=== PATIENT | female | born 1935 | race Caucasian/White ===

== ENCOUNTER 2023-08-31 20:00 | Emergency (ER) | payer OTHER, SELFPAY ==
[2023-08-31 20:02] VITALS: BP 202/98; PULSE 61; RESP 15; TEMP 36.3; O2SAT 98; BMI 19.6
--- NOTE | 2023-08-31 20:22 | EKG12_ITS ---
Test Reason : DYSRHYTHMIA Blood Pressure : / mmHG Vent. Rate : 070 BPM Atrial Rate : 070 BPM P-R Int : 152 ms QRS Dur : 088 ms QT Int : 422 ms P-R-T Axes : 073 054 074 degrees QTc Int : 455 ms Normal sinus rhythm Minimal voltage criteria for LVH, may be normal variant ( Sokolow-Kirk ) Borderline ECG Confirmed by Demarcus Dhillon ([id number]), sound editor DINA MENEZES ([id number]) on 09/01/2023 8:06:46 AM Referred By: Confirmed By:Demarcus Dhillon
[2023-08-31] MEDS: 0.9% Normal Saline (1000mL) 1,000 ML 1000 ML IV (20:45)
[2023-08-31 20:46] VITALS: BP 231/84; PULSE 61; RESP 15; O2SAT 98
[2023-08-31 20:51] LABS: Absolute Lymphocyte Count 1.41 X10^3/uL (0.83-4.51); Absolute Neutrophil Count 4.5 X10^3/uL (2.0-7.7); Basophil# 0.03 X10^3/uL; Basophil% 0.5 % (0-1); Eosinophil# 0.09 X10^3/uL; Eosinophils% 1.4 % (0-5); Hematocrit 45.1 % (37-47); Hemoglobin 14.5 g/dL (12.0-15.0); Lymphocyte # 1.41 X10^3/ul (0.83-4.51); Lymphocyte % 21.3 % (19-41); Mean Corp Hgb Conc 32.2 g/dL (32-36); Mean Corpuscular Hgb 28.8 pg (27.0-32.0); Mean Corpuscular Volume 89.7 fL (81-99); Mean Platelet Vol. 9.1 fl (6.2-12.0); Monocyte% 9.1 % (0-10); NRBC Flagged by Analyzer 0 % (0-5); Neutrophil # 4.46 X10^3/uL (2.7-7.7); Neutrophil % 67.2 % (47-70); Platelet Count 237 K/mm3 (150-450); RBC Distribution Width SD 42.8 fl (35.1-43.9); Red Blood Count 5.03 M/mm3 (4.2-5.4); White Blood Count 6.6 K/mm3 (4.4-11.0)
[2023-08-31 21:04] LABS: Bacteria 0 SEEN /hpf (None Seen); Color, Urine Yellow (Yellow); Glucose, Dipstick Normal (Normal); Ketone-Dipstick Negative (Negative); Leukocyte Esterase-Dipstick 500 /ul (Negative); Mucous, Urine 0 SEEN /hpf (<or=2+); Nitrite-Dipstick Negative (Negative); Occult Blood-Urine 10 /ul (Negative); Protein-Dipstick 15 mg/dl (Negative); Red Blood Cells-Urine 0 SEEN /hpf (0-5); Squamous Epithelial Cells - UA 0 SEEN /hpf (5-10); Urine Bilirubin Dipstick Negative (Negative); Urine Clarity Sl. Cloudy (Clear); Urine Urobilinogen Normal (Normal)
[2023-08-31 21:13] LABS: White Blood Cells 5-10 SEEN /hpf (0-5)
[2023-08-31 21:14] LABS: ALB/GLOB Ratio 0.9 RATIO (0.9-2.4); AST(SGOT) 13 U/L (15-37); Alanine Aminotransfer ALT/SGPT 35 U/L (13-56); Albumin, Serum 3.2 g/dL (3.2-5.0); Alkaline Phosphatase 91 U/L (45-117); Anion Gap 5 (5-15); BUN 24 mg/dL (7-18); BUN/Creat Ratio 26.5 RATIO (10-20); Calcium,Total 9.1 mg/dL (8.5-10.1); Chloride 107 mmol/L (98-107); Creatinine, Serum 0.91 mg/dL (0.55-1.02); EST Glomerular Filtration Rate 62 mL/min (>60); Est Glom Filt Rate - Afr Amer 76 mL/min (>60); Estimated Creatinine Clearance 36.85 ml/min; Globulin 3.7 g/dL (2.2-4.2); Glucose 144 mg/dL (74-106); Lipase 34 U/L (13-75); Potassium 4.6 mmol/L (3.5-5.1); Protein, Total 6.9 g/dL (6.4-8.2); Sodium Level 140 mmol/L (136-145); Troponin-I HS 17 pg/mL (3.0-54.0)
--- NOTE | 2023-08-31 22:00 | CT_ITS ---
EXAM: CT brain without IV contrast. HISTORY: hypertensive headache TECHNIQUE: No intravenous contrast. A radiation dose optimization technique was used for this scan. COMPARISON: None. LIMITATIONS: None. BRAIN: Mild involutional change. Mild low attenuation bilaterally within the deep white matter, likely secondary to chronic microvascular ischemia. VENTRICLES: No hydrocephalus. EXTRA-AXIAL SPACES: No acute hemorrhage. CALVARIUM/SKULL BASE: No acute fracture. FACE/SINUSES: The maxillary sinuses are largely opacified bilaterally due to mucosal thickening and fluid. SOFT TISSUES: Normal. OTHER: None. CONCLUSION: No acute intracranial abnormality. Maxillary sinus disease. Electronically Signed: Hang Gaviria MD at 22:18 EST , CT/Brain/Head without Contrast IMPRESSION: undefined
[2023-08-31 22:02] VITALS: BP 194/90; PULSE 72; RESP 16; O2SAT 97
[2023-08-31] MEDS: hydrALAZINE 20 MG/ML Vial 10 MG IV (22:17)
[2023-08-31 22:55] VITALS: BP 166/64; PULSE 93; RESP 14; O2SAT 98
[2023-08-31 23:21] VITALS: BP 149/68; PULSE 94; RESP 15; O2SAT 99
--- NOTE | 2023-08-31 23:45 | EDS_ITS ---
HPI History of Present Illness Chief Complaint: Abd Pain Narrative Narrative: 87-year-old female presenting with her family out of concern of some lightheadedness. Patient states she had some nausea this evening. She stated she could not really describe it as pain. She started to feel lightheaded and nonvertiginous manner and mild headache. Her family checked her blood pressure and noted the top number was over 200 but they cannot remember the bottom number. They state that she has not had her blood pressure checked in years. She has not been to the doctor in at least 4 years. They do not know what her baseline is that she has no history of hypertension. Patient denies acute onset headache, blurred vision, slurred speech. She is able to move all 4 extremities. Her nausea is currently improved. She does not have any chest pain or abdominal pain. [facility] Medical History Dizzy Racing heart beat Home Medications hydralazine 10 mg tablet 10 mg PO BID #10 tabs 08/31/23 [Rx Last Taken Unknown] Allergy/AdvReac Type Severity Reaction Status Date / Time No Known Allergies Allergy Verified 08/31/23 20:02 Surgical History Hx of tubal ligation Social History Smoking Status: Never smoker ROS ROS ED Constitutional Constitutional ED: Denies chills, fever(s) or sweats Eyes Eyes: Denies blurry vision or change in vision ENT ENT ED: Denies ear pain or sore throat Cardiovascular Cardiovascular: Denies chest pain, palpitations or racing heartbeat Respiratory/Chest Respiratory/Chest: Denies cough, dyspnea or sputum Gastrointestinal Gastrointestinal: Reports nausea; Denies abdominal pain, constipation, diarrhea or vomiting Genitourinary Genitourinary ED: Denies dysuria, hematuria or urinary frequency Musculoskeletal Musculoskeletal: Denies arthralgias, myalgias or neck pain Integumentary Denies abscess, Abrasions or rash Neurologic Neurologic: Reports headache(s) and other Details: Lightheadedness ; Denies paresthesias or weakness Psychiatric Psychiatric: Denies anxiety, depression, suicidal ideation or suicidal thoughts Endocrine Endocrinology: Denies polydipsia or polyuria EXAM Physical Exam Const Vital Signs: 08/31/23 20:02 08/31/23 20:46 08/31/23 22:02 Temperature 97.3 F L Temperature Source Temporal Pulse Rate 61 61 72 Respiratory Rate 15 15 16 Blood Pressure 202/98 H 231/84 H 194/90 H Blood Pressure Mean 132 133 124 Pulse Ox 98 98 97 Oxygen Delivery Method Room Air Room Air Room Air 08/31/23 22:55 08/31/23 23:21 Temperature Temperature Source Pulse Rate 93 94 Respiratory Rate 14 15 Blood Pressure 166/64 H 149/68 H Blood Pressure Mean 98 95 Pulse Ox 98 99 Oxygen Delivery Method Room Air Room Air Positive well nourished General Appearance ED: NAD HEENT Reports moist mucous membranes Eyes PERRL and EOMs intact bilaterally Eyes Narrative: Negative Jose-Hallpike Chest Wall inspection of chest normal Resp normal respiratory effort Auscultation: Negative for rales, rhonchi or wheezes Cardio regular rate and regular rhythm GI normal to inspection, nondistended, normoactive bowel sounds Neuro oriented x3, CN's II-XII intact bilaterally and no sensory deficits noted Sensorium / Orientation: alert Motor Exam: strength 5/5 throughout Psych mental status grossly normal Skin no rashes or lesions noted General Skin Exam: Negative for elasticity normal or jaundice MDM MDM MDM Narrative Medical decision making narrative: 87-year-old female presenting with lightheadedness and nausea. She is found to have high blood pressure. We rechecked it here and it was 202/98. She also had a blood pressure reading of 231/84. She is currently not having any abdominal pain or nausea. She states she has a headache. No focal neurologic deficits or lateralizing signs or symptoms. Differential includes intracranial hemorrhage, normal, hypertension, dehydration, anemia, UTI, ACS, dysrhythmia. CT brain was obtained to rule out intracranial process. CBC obtained to assess white blood cell count, hemoglobin, platelets. This is all within normal limits. Renal function and electrolytes within normal limits however BUN/creatinine ratio was elevated at 26.5. Patient was given a liter normal saline. LFTs are normal. High-sensitivity troponin is 17. EKG on my interpretation shows a normal sinus rhythm with a ventricular rate of 70 bpm without sign ischemic change. Lipase 34. Urinalysis negative. given patient's blood pressure and symptoms we did give her 10 of hydralazine here today and her blood pressure on recheck was 149/68. I discussed this with her primary care physician (Dr. Gaspar) who recommended I send the urine for culture as he did not think it was a UTI. He recommended I give her 10-10 mg hydralazine to take as needed and he was here in the office this week. Patient minimal to this plan. Discharged to the care of her family. Impression: 1. Hypertension 2. Headache 3. Nausea Lab Data Attestation: I reviewed the patient's lab results. Labs: Laboratory Results - last 24 hr 08/31/23 08/31/23 20:45 21:00 WBC 6.6 RBC 5.03 Hgb 14.5 Hct 45.1 MCV 89.7 MCH 28.8 MCHC 32.2 RDW Std Deviation 42.8 RDW Coeff of Raman 13.0 Plt Count 237 MPV 9.1 Immature Gran % (Auto) 0.500 Neut % (Auto) 67.2 Lymph % (Auto) 21.3 [place] % (Auto) 9.1 Eos % (Auto) 1.4 Baso % (Auto) 0.5 Absolute Neuts (auto) 4.5 Absolute Lymphs (auto) 1.41 Nucleated RBC % 0 Sodium 140 Potassium 4.6 Chloride 107 Carbon Dioxide 28.0 Anion Gap 5 BUN 24 H Creatinine 0.91 Estim Creat Clear Calc 36.85 Est GFR (MDRD) Af Amer 76 Est GFR (MDRD) Non-Af 62 BUN/Creatinine Ratio 26.5 H Glucose 144 H Calcium 9.1 Total Bilirubin 0.40 AST 13 L ALT 35 Alkaline Phosphatase 91 Troponin I High Sens 17 Total Protein 6.9 Albumin 3.2 Globulin 3.7 Albumin/Globulin Ratio 0.9 Lipase 34 Urine Color Yellow Urine Clarity Sl. Cloudy Urine pH 7.0 Ur Specific [place] 1.010 Urine Protein 15 H Urine Glucose (UA) Normal Urine Ketones Negative Urine Occult Blood 10 H Urine Nitrite Negative Urine Bilirubin Negative Urine Urobilinogen Normal Ur Leukocyte Esterase 500 H Urine RBC 0 SEEN Urine WBC 5-10 SEEN Ur Squamous Epith Cells 0 SEEN Urine Bacteria 0 SEEN Urine Mucus 0 SEEN Radiography Diagnostic Testing: Clinical Impression(s) from Imaging Studies Brain CT 08/31/23 22:00 IMPRESSION: undefined Discharge Plan Triage Chief Complaint: Abd Pain ED Provider: Sheldon Abraham Dx/Rx/DC Orders Instructions: ED Hypertension New Begin Treatment Prescriptions: New hydralazine 10 mg tablet 10 mg PO BID Qty: 10 0RF Primary Care Provider: Eusebio Gaspar Referrals: Eusebio Gaspar DO [Primary Care Provider] - Disposition Disposition: Home, Self Care
[2023-09-01 00:06] VITALS: BP 154/89; PULSE 85; RESP 16; TEMP 36.3; O2SAT 98
== END 2023-09-01 00:07 | disposition home or self-care (01) ==
PROVIDERS: Emergency Provider Student in an Organized Health Care Education/Training Program; PCP Family Medicine; Visit Provider Student in an Organized Health Care Education/Training Program
DX: I10 Essential (primary) hypertension (principal); R51.9 Headache, unspecified; R11.0 Nausea
CPT/HCPCS: 70450; 80053; 81001; 83690; 84484; 85025; 87086; 93005; 96361; 96374; 99283; J7030; A4216